=== PATIENT | male | born 1995 | race Two or more races ===

== ENCOUNTER 2024-01-04 06:46 | Emergency (ER) | payer MEDICAID, OTHER ==
[~2024-01-04] VITALS: Ht 182.9 cm; Wt 105.4 kg
[2024-01-04] MEDS ORDERED: ONDANSETRON HCL 4 MG/2 ML VIAL IV ONE (07:15)
[2024-01-04 07:45] VITALS: BP 139/96; PULSE 81; RESP 22; TEMP 97.5; O2SAT 96
[2024-01-04 07:58] LABS: Urine Bacteria None Seen /hpf (None Seen)
[2024-01-04 08:17] LABS: Urine Blood 2+ /uL (Negative); Urine Clarity Clear (Clear); Urine Color Yellow (Yellow); Urine Mucus FEW (None Seen); Urine Protein, UAD 1+ (Negative); Urine Specific Gravity 1.032 (1.001-1.035); Urine Urobilinogen Normal (Negative); Urine WBC 1 /hpf (0 - 3); Urine pH 6.5 (5.0-9.0)
== END 2024-01-04 08:06 | disposition left against medical advice (07) ==
LOC: ER 06:46
DX: R10.32 Left lower quadrant pain (principal)
CPT/HCPCS: 81001